=== PATIENT | male | born 1955 | race Caucasian/White ===

== ENCOUNTER 2023-06-09 08:26 | Outpatient (OUT) | payer BC, SELFPAY | END 2023-06-09 08:27 | disposition home or self-care (01) | LOC: PST 08:27 | PROVIDERS: PCP Internal Medicine; Visit Provider Surgery | DX: Z01.818 Encounter for other preprocedural examination (principal); Z86.010 Personal history of colon polyps ==

== ENCOUNTER 2023-06-17 08:44 | Day surgery (SDC) | payer BC, SELFPAY ==
--- NOTE | 2023-06-17 | OP_ITS ---
OPERATION DATE: ??06/17/2023 PREOPERATIVE DIAGNOSIS:? Personal history of colon polyps, large villoglandular polyp in the ascending colon. POSTOPERATIVE DIAGNOSIS:? Normal colonoscopy to cecum. PROCEDURE:? Colonoscopy to cecum. SURGEON:? Austin Henley M.D. ANESTHESIA:? Monitored anesthesia care. ESTIMATED BLOOD LOSS:? Zero. INDICATIONS AND CONSENT:? 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 This was removed at [facility] with a submucosal resection technique.? Six month follow up colonoscopy was recommended.? Indications, risks, benefits, alternatives of proceeding with colonoscopy were explained extensively to the patient, including the risks of bleeding, infection, scarring, pain, bowel perforation, need for further surgery or anesthetic complications.? All of his questions were answered.? Informed consent was obtained. PROCEDURE:? Patient brought to the operating room, placed in the left lateral decubitus position.? Monitored anesthesia care was provided.? Rectal exam was performed which showed no masses or blood.? The scope was inserted into the anal canal.? Under direct visualization was advanced.? With the aid of abdominal compression, it was advanced to the cecum where cecal markings were clearly identified.? There was noted to be a good prep.? Upon withdrawal of the scope, mucosal surfaces were carefully examined.? There was noted to be scarring where the submucosal resection was performed, but there was no nodularity or recurrent polyp. There were no mass lesions or inflammatory changes.? No significant diverticulosis.? The scope was retroflexed in the anal canal.? There was no significant hemorrhoidal disease.? Scope was then withdrawn.? Patient tolerated procedure well, was sent to recovery room in good condition. Follow up colonoscopy should be in one year. CC:? Yeni Byers
[2023-06-17 09:02] VITALS: BMI 33.9
[2023-06-17] MEDS: LACTATED RINGER'S SOLUTION 1,000 ML 50 ML IV (09:14)
[2023-06-17 10:55] VITALS: BP 113/73; PULSE 78; RESP 20; TEMP 35.8; O2SAT 96
[2023-06-17 11:10] VITALS: BP 130/72; PULSE 82; RESP 18; O2SAT 97
[2023-06-17 11:26] VITALS: BP 132/72; PULSE 77; RESP 18; O2SAT 98
== END 2023-06-17 11:25 | disposition home or self-care (01) ==
PROVIDERS: PCP Internal Medicine; Visit Provider Surgery
PROC: (CPT 811; principal; 2023-06-17 09:40)
DX: Z86.010 Personal history of colon polyps (principal); I10 Essential (primary) hypertension; E66.01 Morbid (severe) obesity due to excess calories; Z87.442 Personal history of urinary calculi; Z79.82 Long term (current) use of aspirin; Z79.899 Other long term (current) drug therapy; Z87.891 Personal history of nicotine dependence; J44.9 Chronic obstructive pulmonary disease, unspecified; G70.00 Myasthenia gravis without (acute) exacerbation; N40.0 Benign prostatic hyperplasia without lower urinary tract symptoms; Z68.31 Body mass index [BMI] 31.0-31.9, adult
CPT/HCPCS: 45378; J2704

== ENCOUNTER 2023-09-22 18:35 | Emergency (ER) | payer MEDICARE, SELFPAY ==
[2023-09-22 18:38] VITALS: BP 165/83; PULSE 109; RESP 18; TEMP 36.6; O2SAT 95; BMI 33.7
--- NOTE | 2023-09-22 18:42 | XR_ITS ---
[address] [address] Patient Name: BEBO CALDERON MRN: [id number] date: 1955 Sex: M Assigned Patient Location: ER Current Patient Location: ED.MAIN Accession/Order Number: [id number] Exam Date: 09/22/2023 18:50 Report Date: 09/22/2023 19:48 At the request of: CHARLES CASTANEDA Procedure: XR ankle RT 2V IMAGES REVIEWED: XR ankle RT 2V COMPARISON: None available. CLINICAL INDICATION: pain, fall FINDINGS/IMPRESSION: 1. No evidence of acute osseous abnormality of the right ankle. 2. Lower leg-ankle soft tissue swelling. 3. Mild calcaneal enthesopathy. Electronically authenticated by: SILVA JOSHI Date: 09/22/2023 19:48
--- NOTE | 2023-09-22 18:43 | ECG_ITS ---
The [facility] Test Date: 2023-09-22 Pat Name: BEBO CALDERON Department: Room: - Gender: Male Senior Product Manager: : 1955 Requested By: MIGUEL ANGEL GREGORIO Order Number: [id number] Reading MD: SOSA YBARRA Measurements Intervals [place] Rate: 105 P: 40 [place]: 144 QRS: 38 QRSD: 82 T: -15 QT: 338 QTc: 399 Interpretive Statements 1120 Sinus tachycardia [address] depression 4164 Twave abnormality, possible inferolateral ischemia 9150 abnormal ECG Electronically Signed On 09-22-2023 22:38:58 EDT by SOSA YBARRA
[2023-09-22] MEDS: OXYCODONE HCL/ACETAMINOPHEN 5MG/325MG 1 TAB PO (18:47)
--- NOTE | 2023-09-22 18:47 | PC.NURSE ---
patient reports that he has hit his right lee on a wooden stair facing 2 times in 2 days. patient has swelling and abrasion to right anterior lower leg-bleeding controlled. patient has swelling to right lower leg and area of ecchymosis around ankle mortise. patient is able to ambulate but is noted to be limping.
--- NOTE | 2023-09-22 18:53 | ED.GENADUL1 ---
HPI - General Adult General Chief complaint: Extremity Injury, Lower Stated complaint: LE INJURY Time Seen by Provider: 09/22/23 18:40 Source: patient Mode of arrival: walk-in Limitations: physical limitation History of Present Illness HPI narrative: 68-year-old male to the emergency room for a chief complaint of pain in his right ankle. Patient reports that three days ago he tripped while walking up stairs and injured his right lateral ankle. He reports that he had a small wound with some bleeding. He has been able to walk on it until again today he hit it again and has increased pain. He reports he is limping on it. He denies any fever, sweats, chills. He denies any numbness or tingling. Related Data Home Medications Medication Instructions Recorded Confirmed albuterol sulfate 2.5 mg/3 mL 1.25 mg inhalation TID-QID PRN 06/08/23 09/22/23 (0.083 %) solution for nebulization shortness of breath or wheezing amlodipine 5 mg tablet 5 mg PO DAILY 06/08/23 09/22/23 aspirin 81 mg tablet,delayed 81 mg PO DAILY 06/08/23 09/22/23 release carvedilol 3.125 mg tablet 3.125 mg PO BID 06/08/23 09/22/23 montelukast 10 mg tablet 10 mg PO QPM 06/08/23 09/22/23 (Singulair) pyridostigmine bromide 60 mg tablet 60 mg PO QID 06/08/23 09/22/23 Allergies Allergy/AdvReac Type Severity Reaction Status Date / Time No Known Drug Allergies Allergy Verified 09/22/23 18:41 Review of Systems ROS Status of ROS 10 or more systems reviewed and unremarkable except as noted in history and below [facility] Medical History (Updated 09/22/23 @ 18:55 by Prasad Swartz MD) Colonoscopy planned Tubular adenoma of colon ?D12.6 - Benign neoplasm of colon, unspecified (ICD-10) Positive colorectal cancer screening using Cologuard test ?R19.5 - Other fecal abnormalities (ICD-10) Colonic polyp ?K63.5 - Polyp of colon (ICD-10) Myasthenia gravis ?G70.00 - Myasthenia gravis without (acute) exacerbation (ICD-10) Morbid obesity ?E66.01 - Morbid (severe) obesity due to excess calories (ICD-10) History of nephrolithiasis ?Z87.442 - Personal history of urinary calculi (ICD-10) Essential hypertension ?I10 - Essential (primary) hypertension (ICD-10) Cervical disc disease ?M50.90 - Cervical disc disorder, unspecified, unspecified cervical region (ICD-10) BMI 35.0-35.9,adult ?Z68.35 - Body mass index [BMI] 35.0-35.9, adult (ICD-10) Berylliosis ?J63.2 - Berylliosis (ICD-10) Surgical History (Updated 06/08/23 @ 14:50 by Chelita Bowles) History of ureteroscopy ?Z98.890 - Other specified postprocedural states (ICD-10) History of repair of rotator cuff ?Z98.890 - Other specified postprocedural states (ICD-10) Status post trigger finger release ?Z98.890 - Other specified postprocedural states (ICD-10) Hx of LASIK ?Z98.890 - Other specified postprocedural states (ICD-10) History of cystoscopy ?Z98.890 - Other specified postprocedural states (ICD-10) Hx of cardiac cath ?Z98.890 - Other specified postprocedural states (ICD-10) History of appendectomy ?Z90.49 - Acquired absence of other specified parts of digestive tract (ICD-10) History of lithotripsy ?Z98.890 - Other specified postprocedural states (ICD-10) Family History (Updated 06/08/23 @ 14:55 by Chelita Bowles) Mother Family history of COPD (chronic obstructive pulmonary disease) Primary malignant neoplasm of skin Father Heart disease Brother Primary malignant neoplasm of skin Heart disease Social History (Updated 06/17/23 @ 08:59 by Tran Owen) Within the past year, how often did you have a drink containing alcohol: never Score interpretation: A score less than 4 is consistent with normal alcohol consumption. Smoking status: Former smoker Second hand tobacco smoke exposure: No Non-prescribed substance use: denies use Previous occupational history: RETIRED Known occupational exposures/hazards: Yes Known occupational exposures/hazards details: BERYLLIUM DISEASE Highest level of school completed/degree received: high school graduate Do you think of yourself as: straight/heterosexual Gender Identity: male Exam Narrative Exam Narrative: VITALS: I have reviewed the triage vital signs. GENERAL: Well developed, well appearing adult in no acute distress. NEURO: Alert and oriented. Moves all extremities. Face is symmetric and expressive. Right Lower Extremity: DP and PT pulses intact. Limb is similar color and temperature to the contralateral limb. No swelling. Trace bruising about the lateral ankle. No medial malleolus tenderness. Positive lateral malleolus tenderness. No tenderness at the base of the fifth metatarsal. No midfoot tenderness. No fibular head tenderness. Able to bear weight with arches maintained. Sensation is intact over the foot and lower leg. Dorsiflexion/plantar flexion, knee flexion/extension, hip flexion/extension are grossly intact by strength testing. SKIN: Warm and dry. Normal turgor. No rash or lesions appreciated. PSYCH: Mood, affect, and interaction is appropriate to the setting. Constitutional Vital Signs, click to edit/add: Last Vital Signs Temp 98 F 09/22/23 18:38 Pulse 109 H 09/22/23 18:38 Resp 18 09/22/23 18:38 BP 165/83 H 09/22/23 18:38 Pulse Ox 95 09/22/23 18:38 O2 Del Method Room Air 09/22/23 18:38 Course Vital Signs Vital signs: Vital Signs Temperature 98 F 09/22/23 18:38 Pulse Rate 109 H 09/22/23 18:38 Respiratory Rate 18 09/22/23 18:38 Blood Pressure 165/83 H 09/22/23 18:38 Pulse Oximetry 95 09/22/23 18:38 Oxygen Delivery Method Room Air 09/22/23 18:38 Temperature 98 F 09/22/23 18:38 Pulse Rate 109 H 09/22/23 18:38 Respiratory Rate 18 09/22/23 18:38 Blood Pressure 165/83 H 09/22/23 18:38 Pulse Oximetry 95 09/22/23 18:38 Oxygen Delivery Method Room Air 09/22/23 18:38 Medical Decision Making MDM Narrative Medical decision making narrative: 68-year-old male to the emergency department procedures right ankle. X-rays ordered. Percocet for pain. Care was signed out to Dr. Bray. Discharge Plan Discharge Chief Complaint: Extremity Injury, Lower Clinical Impression: Acute ankle pain Patient Disposition: Still a Patient Prescriptions / Home Meds: No Action amlodipine 5 mg tablet 5 mg PO DAILY aspirin 81 mg tablet,delayed release (DR/EC) 81 mg PO DAILY albuterol sulfate 2.5 mg /3 mL (0.083 %) solution for nebulization 1.25 mg inhalation TID-QID PRN (Reason: shortness of breath or wheezing) carvedilol 3.125 mg tablet 3.125 mg PO BID Rx Instructions: must administer with a meal/food pyridostigmine bromide 60 mg tablet 60 mg PO QID montelukast [Singulair] 10 mg tablet 10 mg PO QPM Referrals: MIGUEL ANGEL GREGORIO MD [Primary Care Provider] - 1 week
--- NOTE | 2023-09-22 18:57 | ED_ITS ---
HPI - General Adult General Chief complaint: Extremity Injury, Lower Stated complaint: LE INJURY Time Seen by Provider: 09/22/23 18:40 Source: patient Mode of arrival: walk-in Limitations: physical limitation History of Present Illness HPI narrative: 68-year-old male to the emergency department treatment of injury of right ankle. He reports that three days ago he tripped and had pain over his lateral ankle. There is small wound with bleeding at that time. He reports that he had it again today and has increasing pain. He reports is difficult to walk due to pain. Otherwise at his baseline health. Denies any other injuries. Related Data Home Medications Medication Instructions Recorded Confirmed albuterol sulfate 2.5 mg/3 mL 1.25 mg inhalation TID-QID PRN 06/08/23 09/22/23 (0.083 %) solution for nebulization shortness of breath or wheezing amlodipine 5 mg tablet 5 mg PO DAILY 06/08/23 09/22/23 aspirin 81 mg tablet,delayed 81 mg PO DAILY 06/08/23 09/22/23 release carvedilol 3.125 mg tablet 3.125 mg PO BID 06/08/23 09/22/23 montelukast 10 mg tablet 10 mg PO QPM 06/08/23 09/22/23 (Singulair) pyridostigmine bromide 60 mg tablet 60 mg PO QID 06/08/23 09/22/23 Allergies Allergy/AdvReac Type Severity Reaction Status Date / Time No Known Drug Allergies Allergy Verified 09/22/23 18:41 Review of Systems ROS Status of ROS 10 or more systems reviewed and unremark able except as noted in history and below [facility] Medical History (Updated 09/22/23 @ 18:55 by Prasad Swartz MD) Colonoscopy planned Tubular adenoma of colon ?D12.6 - Benign neoplasm of colon, unspecified (ICD-10) Positive colorectal cancer screening using Cologuard test ?R19.5 - Other fecal abnormalities (ICD-10) Colonic polyp ?K63.5 - Polyp of colon (ICD-10) Myasthenia gravis ?G70.00 - Myasthenia gravis without (acute) exacerbation (ICD-10) Morbid obesity ?E66.01 - Morbid (severe) obesity due to excess calories (ICD-10) History of nephrolithiasis ?Z87.442 - Personal history of urinary calculi (ICD-10) Essential hypertension ?I10 - Essential (primary) hypertension (ICD-10) Cervical disc disease ?M50.90 - Cervical disc disorder, unspecified, unspecified cervical region (ICD-10) BMI 35.0-35.9,adult ?Z68.35 - Body mass index [BMI] 35.0-35.9, adult (ICD-10) Berylliosis ?J63.2 - Berylliosis (ICD-10) Surgical History (Updated 06/08/23 @ 14:50 by Chelita Bowles) History of ureteroscopy ?Z98.890 - Other specified postprocedural states (ICD-10) History of repair of rotator cuff ?Z98.890 - Other specified postprocedural states (ICD-10) Status post trigger finger release ?Z98.890 - Other specified postprocedural states (ICD-10) Hx of LASIK ?Z98.890 - Other specified postprocedural states (ICD-10) History of cystoscopy ?Z98.890 - Other specified postprocedural states (ICD-10) Hx of cardiac cath ?Z98.890 - Other specified postprocedural states (ICD-10) History of appendectomy ?Z90.49 - Acquired absence of other specified parts of digestive tract (ICD- 10) History of lithotripsy ?Z98.890 - Other specified postprocedural states (ICD-10) Family History (Updated 06/08/23 @ 14:55 by Chelita Bowles) Mother Family history of COPD (chronic obstructive pulmonary disease) Primary malignant neoplasm of skin Father Heart disease Brother Primary malignant neoplasm of skin Heart disease Social History (Updated 06/17/23 @ 08:59 by Tran Owen) Within the past year, how often did you have a drink containing alcohol: never Score interpretation: A score less than 4 is consistent with normal alcohol consumption. Smoking status: Former smoker Second hand tobacco smoke exposure: No Non-prescribed substance use: denies use Previous occupational history: RETIRED Known occupational exposures/hazards: Yes Known occupational exposures/hazards details: BERYLLIUM DISEASE Highest level of school completed/degree received: high school graduate Do you think of yourself as: straight/heterosexual Gender Identity: male Exam Narrative Exam Narrative: VITALS: I have reviewed the triage vital signs. GENERAL: Well developed, well appearing adult in no acute distress. Right Lower Extremity: DP and PT pulses intact. Limb is similar color and temperature to the contralateral limb. No swelling. Trace ecchymosis about the right ankle. No medial malleolus tenderness. Positive lateral malleolus tenderness. No tenderness at the base of the fifth metatarsal. No midfoot tenderness. No fibular head tenderness. Able to bear weight with arches maintained. Sensation is intact over the foot and lower leg. Dorsiflexion/plantar flexion, knee flexion/extension, hip flexion/extension are grossly intact by strength testing. Compartments are soft. SKIN: Warm and dry. Normal turgor. No rash or lesions appreciated. PSYCH: Mood, affect, and interaction is appropriate to the setting. Constitutional Vital Signs, click to edit/add: Last Vital Signs Temp 98 F 09/22/23 18:38 Pulse 109 H 09/22/23 18:38 Resp 18 09/22/23 18:38 BP 165/83 H 09/22/23 18:38 Pulse Ox 95 09/22/23 18:38 O2 Del Method Room Air 09/22/23 18:38 Course Vital Signs Vital signs: Vital Signs Temperature 98 F 09/22/23 18:38 Pulse Rate 109 H 09/22/23 18:38 Respiratory Rate 18 09/22/23 18:38 Blood Pressure 165/83 H 09/22/23 18:38 Pulse Oximetry 95 09/22/23 18:38 Oxygen Delivery Method Room Air 09/22/23 18:38 Temperature 98 F 09/22/23 18:38 Pulse Rate 109 H 09/22/23 18:38 Respiratory Rate 18 09/22/23 18:38 Blood Pressure 165/83 H 09/22/23 18:38 Pulse Oximetry 95 09/22/23 18:38 Oxygen Delivery Method Room Air 09/22/23 18:38 Medical Decision Making MDM Narrative Medical decision making narrative: 68-year-old male with injury to his right ankle. Vital stable, the patient is afebrile. Limits neurovascularly intact. There is no evidence of infection. No evidence of compartment syndrome. X-rays ordered. Percocet for discomfort. Care was signed out to Dr. Bray with x-ray pending. Discharge Plan Discharge Patient Disposition: Still a Patient
== END 2023-09-22 20:20 | disposition home or self-care (01) ==
PROVIDERS: Emergency Provider Internal Medicine; PCP Internal Medicine
DX: S93.401A Sprain of unspecified ligament of right ankle, initial encounter (principal); W18.40XA Slipping, tripping and stumbling without falling, unspecified, initial encounter; Z79.82 Long term (current) use of aspirin; Z79.899 Other long term (current) drug therapy; E66.01 Morbid (severe) obesity due to excess calories; I10 Essential (primary) hypertension; J63.2 Berylliosis; Z87.442 Personal history of urinary calculi; G70.00 Myasthenia gravis without (acute) exacerbation; Z86.010 Personal history of colon polyps; Z87.891 Personal history of nicotine dependence; Z90.49 Acquired absence of other specified parts of digestive tract; Z98.890 Other specified postprocedural states; Z68.33 Body mass index [BMI] 33.0-33.9, adult
CPT/HCPCS: 73600; 93005; 99284

== ENCOUNTER 2023-09-29 03:37 | Emergency (ER) | payer BC, SELFPAY ==
--- NOTE | 2023-09-29 | CT_ITS ---
[address] [address] Patient Name: BEBO CALDERON MRN: [id number] date: 1955 Sex: M Assigned Patient Location: ED.MAIN Current Patient Location: Accession/Order Number: [id number] Exam Date: 09/29/2023 05:12 Report Date: 09/29/2023 06:19 At the request of: CRYSTAL HOLGUIN Procedure: CT abdomen pelvis w con EXAMINATION: CT abdomen pelvis w con HISTORY: Acute epigastric pain, abdominal bloating, nausea and vomiting COMPARISON: CT abdomen pelvis 10/07/2011 TECHNIQUE: Axial, Coronal, and Sagittal images were obtained without and/or with IV contrast as indicated by examination type. Dose reduction techniques were achieved by using automated exposure control and/or adjustment of mA and/or kV according to patient size and/or use of iterative reconstruction technique. FINDINGS: LUNG BASES: No visible pulmonary or pleural disease. LIVER: No enlargement, atrophy, suspicious density, or significant focal lesion. BILIARY: No dilatation or calcification. PANCREAS: No lesion, fluid collection, or abnormal duct dilatation. SPLEEN: No enlargement or focal lesion. ADRENALS: No mass or enlargement. KIDNEYS: Several small hypodensities bilaterally; nonspecific but favoring cysts. Nonobstructing 4 mm stone within right kidney. BOWEL/MESENTERY: Fluid-filled stomach, small bowel, and colon without abnormal dilation. No visible mass, obstruction, or bowel wall thickening. AORTA/VASCULAR: No aneurysm or dissection. RETROPERITONEUM: No mass or adenopathy. LYMPH NODES: No adenopathy. URINARY BLADDER: No visible focal wall thickening, lesion, or calculus. PELVIC ORGANS: No visible mass. Pelvic organs appropriate for patient age. ABDOMINAL WALL: No mass or hernia. BONES: No bony lesion or fracture. OTHER: Negative. CT/CT abdomen pelvis w con IMPRESSION: 1. Fluid-filled stomach, small bowel, and colon without abnormal bowel dilation, wall thickening, obstruction. Enteritis? 2. Otherwise unremarkable abdomen and pelvis. Electronically authenticated by: RENO DONNELLY Date: 09/29/2023 06:19
--- NOTE | 2023-09-29 | XR_ITS ---
The [address] [address] Patient Name: BEBO CALDERON MRN: [id number] date: 1955 Sex: M Assigned Patient Location: ED.MAIN Current Patient Location: Accession/Order Number: [id number] Exam Date: 09/29/2023 05:05 Report Date: 09/29/2023 06:10 At the request of: CRYSTAL HOLGUIN Procedure: XR chest 2V EXAMINATION: XR chest 2V HISTORY: Acute epigastric pain, abdominal bloating, nausea and vomiting COMPARISON: XR chest 02/11/2020 FINDINGS: LUNGS: No significant pulmonary parenchymal abnormalities. VASCULATURE: No increased pulmonary vasculature. PLEURA: No pneumothorax, effusion, or pleural thickening. CARDIAC: No cardiomegaly or cardiac silhouette abnormality. MEDIASTINUM: No visible mass or adenopathy. BONES: No fracture or visible bone lesion. OTHER: Negative. XR/XR chest 2V IMPRESSION: 1. No acute cardiopulmonary process. Electronically authenticated by: RENO DONNELLY Date: 09/29/2023 06:10
[2023-09-29] MEDS: ONDANSETRON 4 MG RAPDIS TABLET SL (06:53)
[2023-09-29 06:54] VITALS: BP 138/80; PULSE 76; RESP 18; O2SAT 99
[2023-09-29 07:27] LABS: Chloride 102 mmol/L (98-107); Potassium 3.4 mmol/L (3.5-5.1); Sodium 137 mmol/L (136-145)
[2023-09-29 07:28] LABS: Alanine Aminotransferase 32 U/L (16-63); Albumin Globulin Ratio 0.8; Albumin Level 3.1 g/dL (3.4-5.0); Alkaline Phosphatase 58 U/L (46-116); Aspartate Amino Transferase 15 U/L (15-37); BUN Creatinine Ratio 13.7; Bilirubin Total 0.8 mg/dL (0.2-1.0); Calcium 9.1 mg/dL (8.5-10.1); Carbon Dioxide 24.4 mmol/L (21.0-32.0); Estimated GFR (African America >60 (>=60); Estimated GFR (Non-African Ame 58 (>=60); Globulin 3.7 g/dL; Glucose 124 mg/dL (74-106); Total Protein 6.8 g/dL (6.4-8.2)
[2023-09-29 07:29] LABS: Hematocrit 45.5 % (42.0-54.0); Mean Corpuscular Hemoglobin 30.7 pg (25.9-34.0); Red Blood Count 4.88 10^6/uL (4.70-6.10); White Blood Count 10.2 10^3/uL (4.0-11.0)
[2023-09-29 07:30] LABS: Basophils Percent Auto 0.2 % (0.2-2.0); Eosinophils Percent Auto 1.2 % (0.9-7.0); Immature Granulocytes Pct Auto 0.3 % (0.0-0.5); Lymphocytes Percent Auto 12.8 % (20.5-60.0); Mean Platelet Volume 10.8 fL (9.5-13.5); Monocytes Percent Auto 9.1 % (1.7-12.0); Neutrophils Absolute Auto 7.8 10^3/uL (1.4-6.5); Neutrophils Percent Auto 76.4 % (43.0-75.0); Platelet Count 262 10^3/uL (150-450)
[2023-09-29 07:31] LABS: Eosinophils Absolute Auto 0.1 10^3/uL (0.0-0.7); Immature Granulocytes Abs Auto 0.03 10^3/uL (0.00-0.03); Lymphocytes Absolute Auto 1.3 10^3/uL (1.2-3.8); Monocytes Absolute Auto 0.9 10^3/uL (0.3-0.8)
== END 2023-09-29 06:54 | disposition home or self-care (01) ==
PROVIDERS: Emergency Provider Internal Medicine; PCP Internal Medicine
DX: K52.9 Noninfective gastroenteritis and colitis, unspecified (principal)
CPT/HCPCS: 36415; 71046; 74177; 80053; 85025; 96374; 99285; Q9967

== ENCOUNTER 2024-03-11 13:46 | Emergency (ER) | payer MEDICARE, SELFPAY ==
[2024-03-11 13:50] VITALS: BP 153/80; PULSE 89; TEMP 37.1; O2SAT 95; BMI 36.6
--- NOTE | 2024-03-11 14:07 | US_ITS ---
The [address] [address] Patient Name: BEBO CALDERON MRN: [id number] date: 1955 Sex: M Assigned Patient Location: ER Current Patient Location: ER Accession/Order Number: [id number] Exam Date: 03/11/2024 14:40 Report Date: 03/11/2024 16:15 At the request of: WOODY MILLER Procedure: US venous doppler LE BI ULTRASOUND OF BILATERAL LOWER EXTREMITY VENOUS SYSTEMS WITH DUPLEX, 03/11/2024 2:40 PM EDT INDICATION: Leg edema. Recent airline travel. COMPARISON: No prior lower extremity Doppler ultrasound available for comparison at the time of this dictation. TECHNIQUE: Multi-planar real-time ultrasonography of the bilateral lower extremity venous systems using grayscale imaging supplemented by color Doppler. Augmentation and compression maneuvers were utilized as needed. FINDINGS: The saphenofemoral junction, common femoral, profunda femoral, superficial femoral and popliteal veins are fully compressible with anterograde flow. Respiratory variation and waveform response to augmentation within normal limits. Complete compressibility posterior tibial, peroneal, anterior tibial, small saphenous and greater saphenous veins. US/US venous doppler LE BI IMPRESSION: Negative for deep vein thrombosis in either lower extremity. Electronically authenticated by: RONAK SHORE Date: 03/11/2024 16:15
--- NOTE | 2024-03-11 14:07 | XR_ITS ---
The [address] [address] Patient Name: BEBO CALDERON MRN: [id number] date: 1955 Sex: M Assigned Patient Location: ER Current Patient Location: ER Accession/Order Number: [id number] Exam Date: 03/11/2024 14:18 Report Date: 03/11/2024 14:38 At the request of: WOODY MILLER Procedure: XR chest 2V EXAM: XR chest 2V HISTORY: SOB, Fluid Retention, history of Berylium disease COMPARISON: 09/29/2023 and earlier chest x-ray. CT chest 2014. TECHNIQUE: PA, lateral chest x-ray. FINDINGS: Lungs are clear without focal density, consolidation or edema. No increasing interstitial density. Normal heart size and mediastinal contour. No pleural effusion or pneumothorax. XR/XR chest 2V IMPRESSION: Stable chest x-ray, clear lungs. No evidence of developing interstitial lung disease. Electronically authenticated by: NICKY SUAZO Date: 03/11/2024 14:38
--- NOTE | 2024-03-11 14:08 | ECG_ITS ---
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
--- NOTE | 2024-03-11 14:12 | ED.GENADUL1 ---
HPI HPI - General Adult General Chief complaint: Shortness of Breath/Dyspnea Stated complaint: BILATERAL LEG SWELLING Time Seen by Provider: 03/11/24 13:54 Source: patient Mode of arrival: walk-in Limitations: no limitations History of Present Illness HPI narrative: Patient is a 68-year-old male presents to the ER with concerns of lower leg swelling. Patient has a history of myasthenia gravis and beryllium disease. Patient states he recently got off a long-term high-dose prednisone treatment and they stopped mycophenolate on Thursday. He has been having gradual fluid retention over the past 3 weeks with symptoms worsening in the past week. He also had a recent flight to [place] earlier in the month. He denies any prior history of PE or DVT. Patient notes legs are less swollen in the morning but become very swollen in the afternoon. He did try wearing compression socks earlier but it caused his upper thigh to swell, the right leg is more swollen than the left. Patient notes some shortness of breath in the home health nurse recommended he come to the ER for evaluation. Patient states he has never taken diuretics in the past. They are always change my meds. PCP is Dr. Gregorio. Onset (ago): week(s) (3) Radiation: Reports non-radiation Severity: mild Related Data Home Medications ?Medication ?Instructions ?Recorded ?Confirmed amlodipine 5 mg tablet 5 mg PO DAILY 06/08/23 03/11/24 carvedilol 3.125 mg tablet 3.125 mg PO BID 06/08/23 09/22/23 montelukast 10 mg tablet 10 mg PO QPM 06/08/23 03/11/24 (Singulair) budesonide 0.25 mg/2 mL suspension 0.25 mg inhalation DAILY 03/11/24 03/11/24 for nebulization carvedilol 6.25 mg tablet 6.25 mg PO BID 03/11/24 03/11/24 dapagliflozin propanediol 10 mg 10 mg PO DAILY 03/11/24 03/11/24 tablet (Farxiga) prednisone 10 mg tablet 5 mg PO DAILY 03/11/24 03/11/24 rosuvastatin 20 mg tablet 20 mg PO DAILY 03/11/24 03/11/24 Allergies Allergy/AdvReac Type Severity Reaction Status Date / Time No Known Drug Allergies Allergy Verified 03/11/24 13:50 Opioid HPI Opioid Management Most Recent Opioid Data: Last Pain Scale 8 09/22/23 18:47 Review of Systems ROS Constitutional Denies: fever or chills Eyes Denies: change in vision or blurry vision Ears, nose, mouth, and throat Denies: throat pain, neck pain or throat swelling Cardiovascular Reports: edema and swelling of feet/ankles; Denies: chest pain, palpitations or lightheadedness Respiratory Reports: shortness of breath; Denies: cough or wheezing Gastrointestinal Denies: abdominal pain or nausea Genitourinary Denies: painful urination Musculoskeletal Denies: back pain or neck pain Integumentary/Breast Denies: rash or itching Neurological Denies: headache or numbness in extremities Psychiatric Denies: anxiety Endocrine Denies: excessive urination Hematologic/Lymphatic Denies: easy bruising PFSH PFSH Medical History (Updated 03/11/24 @ 16:28 by HOWARD Weston) Colonoscopy planned Tubular adenoma of colon ?D12.6 - Benign neoplasm of colon, unspecified (ICD-10) Positive colorectal cancer screening using Cologuard test ?R19.5 - Other fecal abnormalities (ICD-10) Colonic polyp ?K63.5 - Polyp of colon (ICD-10) Myasthenia gravis ?G70.00 - Myasthenia gravis without (acute) exacerbation (ICD-10) Morbid obesity ?E66.01 - Morbid (severe) obesity due to excess calories (ICD-10) History of nephrolithiasis ?Z87.442 - Personal history of urinary calculi (ICD-10) Essential hypertension ?I10 - Essential (primary) hypertension (ICD-10) Cervical disc disease ?M50.90 - Cervical disc disorder, unspecified, unspecified cervical region (ICD-10) BMI 35.0-35.9,adult ?Z68.35 - Body mass index [BMI] 35.0-35.9, adult (ICD-10) Berylliosis ?J63.2 - Berylliosis (ICD-10) Surgical History (Updated 06/08/23 @ 14:50 by Chelita Bowles) History of ureteroscopy ?Z98.890 - Other specified postprocedural states (ICD-10) History of repair of rotator cuff ?Z98.890 - Other specified postprocedural states (ICD-10) Status post trigger finger release ?Z98.890 - Other specified postprocedural states (ICD-10) Hx of LASIK ?Z98.890 - Other specified postprocedural states (ICD-10) History of cystoscopy ?Z98.890 - Other specified postprocedural states (ICD-10) Hx of cardiac cath ?Z98.890 - Other specified postprocedural states (ICD-10) History of appendectomy ?Z90.49 - Acquired absence of other specified parts of digestive tract (ICD-10) History of lithotripsy ?Z98.890 - Other specified postprocedural states (ICD-10) Family History (Updated 06/08/23 @ 14:55 by Chelita Bowles) Mother Family history of COPD (chronic obstructive pulmonary disease) Primary malignant neoplasm of skin Father Heart disease Brother Primary malignant neoplasm of skin Heart disease Social History (Updated 06/17/23 @ 08:59 by Tran Owen) Within the past year, how often did you have a drink containing alcohol: never Score interpretation: A score less than 4 is consistent with normal alcohol consumption. Smoking status: Former smoker Second hand tobacco smoke exposure: No Non-prescribed substance use: denies use Previous occupational history: RETIRED Known occupational exposures/hazards: Yes Known occupational exposures/hazards details: BERYLLIUM DISEASE Highest level of school completed/degree received: high school graduate Do you think of yourself as: straight/heterosexual Gender Identity: male Exam Narrative Exam Narrative: Nurses notes and vital signs reviewed and patient is not hypoxic. General: The patient appears well and in no apparent distress. Patient is resting comfortably on cart. Patient speaking in full sentences Skin: Warm, dry, no pallor noted. No evidence of rash. Head: Normocephalic, atraumatic Neck: Supple, trachea mid-line, no tenderness, no lymphadenopathy Eye: Pupils are equal, round and reactive to light, EOMI Ears, Nose, Mouth, and Throat: TM are clear, normal light reflex, oral mucosa is moist, no posterior oropharynx erythema or hypertrophy, uvula is mid-line Cardiovascular: Regular Rate and Rhythm Respiratory: Patient is in no distress, no accessory muscle use, lungs are clear to auscultation, no wheezing, rales or rhonchi. Chest Wall: no tenderness Back: non-tender, no CVA tenderness Musculoskeletal: normal ROM, no focal joint pain, mild tenderness to swelling in lower legs. Negative Homans' sign but prominent right lower leg swelling in comparison to the left. Left has mild pitting edema right appears more 1+. No sacral edema appreciated. GI: Normal bowel sounds, no tenderness to palpation, no masses appreciated. No rebound, guarding, or rigidity noted. Neurological: A&O x4 Psychiatric: Cooperative Constitutional Vital Signs, click to edit/add: Last Vital Signs Temp 98.7 F 03/11/24 13:50 Pulse 89 03/11/24 13:50 Resp 16 03/11/24 13:50 BP 153/80 H 03/11/24 13:50 Pulse Ox 95 03/11/24 13:50 O2 Del Method Room Air 03/11/24 13:50 Course Vital Signs Vital signs: Vital Signs Temperature 98.7 F 03/11/24 13:50 Pulse Rate 89 03/11/24 13:50 Respiratory Rate 16 03/11/24 13:50 Blood Pressure 153/80 H 03/11/24 13:50 Pulse Oximetry 95 03/11/24 13:50 Oxygen Delivery Method Room Air 03/11/24 13:50 Temperature 98.7 F 03/11/24 13:50 Pulse Rate 89 03/11/24 13:50 Respiratory Rate 16 03/11/24 13:50 Blood Pressure 153/80 H 03/11/24 13:50 Pulse Oximetry 95 03/11/24 13:50 Oxygen Delivery Method Room Air 03/11/24 13:50 Medical Decision Making MDM Narrative Medical decision making narrative: Patient had recent long travels to [place]. We discussed swelling bilateral legs which appears acute on chronic with 5 pound weight gain this week after stopping prednisone taper and mycophenolate. Patient notes some mild shortness of breath for the past few days. He denies any chest pain. Patient notes in the mornings his leg swelling is improved but worsens throughout the day and wearing compression socks to the knee causes upper thighs to swell. Patient denies any fever or recent illness. Symptoms acute on chronic over the past 3 weeks. Patient had significant urinary output after receiving just 20 mg IV Lasix. We discussed potential p.o. treatment to go, effects on blood pressure and potassium. We did page his family doctor to discuss a possible prescription, he is not on-call for us this evening and will reach out to patient if he does return a phone call later. Patient agreeable to continue current medications given his medical history and not add anything new at this time. He will wear his DAVID hose socks, avoid salty foods. Contact his family doctor on Thursday to discuss follow-up and possible medication adjustments. Patient relieved that ultrasound was negative for DVT given his recent travels, chest x-ray without evidence of pulmonary edema or infiltrate and BNP and troponin within normal limits. Patient may return to the ER if symptoms worsen or new symptoms develop. Lab Data Lab results reviewed: Yes I reviewed the patient's lab results Labs: Lab Results 03/11/24 03/11/24 Range/Units 14:21 14:24 WBC 10.9 (4.0-11.0) 10^3/uL RBC 4.99 (4.70-6.10) 10^6/uL Hgb 15.4 (14.0-18.0) g/dL Hct 45.5 (42.0-54.0) % MCV 91.2 (80.0-94.0) fL MCH 30.9 (25.9-34.0) pg MCHC 33.8 (29.9-35.2) g/dL RDW 12.4 (11.0-15.0) % Plt Count 287 (150-450) 10^3/uL MPV 10.8 (9.5-13.5) fL Neut % (Auto) 73.1 (43.0-75.0) % Lymph % (Auto) 16.3 L (20.5-60.0) % Bradley % (Auto) 9.0 (1.7-12.0) % Eos % (Auto) 0.7 L (0.9-7.0) % Baso % (Auto) 0.6 (0.2-2.0) % Neut # (Auto) 8.0 H (1.4-6.5) 10^3/uL Lymph # (Auto) 1.8 (1.2-3.8) 10^3/uL Bradley # (Auto) 1.0 H (0.3-0.8) 10^3/uL Eos # (Auto) 0.1 (0.0-0.7) 10^3/uL Baso # (Auto) 0.1 (0.0-0.1) 10^3/uL Abs Immat Gran (auto) 0.03 (0.00-0.03) 10^3/uL Imm/Tot Granulo (auto) 0.3 (0.0-0.5) % PT 10.2 (9.0-11.6) sec INR 0.96 APTT 28.8 (22.3-36.2) sec Sodium 139 (136-145) mmol/L Potassium 3.7 (3.5-5.1) mmol/L Chloride 104 (98-107) mmol/L Carbon Dioxide 26.8 (21.0-32.0) mmol/L Anion Gap 11.9 BUN 16.0 (7.0-18.0) mg/dL Creatinine 1.17 (0.70-1.30) mg/dL Est GFR ( Amer) >60 (>=60) Est GFR (Non-Af Amer) >60 (>=60) BUN/Creatinine Ratio 13.7 Glucose 107 H (74-106) mg/dL Calcium 9.4 (8.5-10.1) mg/dL Total Bilirubin 0.3 (0.2-1.0) mg/dL AST 13 L (15-37) U/L ALT 38 (16-63) U/L Alkaline Phosphatase 105 (46-116) U/L Troponin I High Sens <4.0 L (4.0-76.1) pg/mL NT-Pro-B Natriuret Pep 118.0 (<=900.0) pg/mL Total Protein 7.4 (6.4-8.2) g/dL Albumin 4.0 (3.4-5.0) g/dL Globulin 3.4 g/dL Albumin/Globulin Ratio 1.2 Urine Color Lt. yellow (YELLOW) Urine Clarity Clear (CLEAR) Urine pH 6.0 (5.0-9.0) Ur Specific [place] 1.020 (1.005-1.025) Urine Protein Negative (NEG/TRACE) mg/dL Urine Glucose (UA) >=1000 A (NEGATIVE) mg/dL Urine Ketones Negative (NEGATIVE) mg/dL Urine Occult Blood Negative (NEGATIVE) Urine Nitrite Negative (NEGATIVE) Urine Bilirubin Negative (NEGATIVE) Urine Urobilinogen 0.2 (0.2-1.0) EU/dL Ur Leukocyte Esterase Negative (NEGATIVE) Imaging Data Chest x-ray: Radiologist's impression: ITS Impressions Chest X-Ray 03/11/24 14:07 IMPRESSION: Stable chest x-ray, clear lungs. No evidence of developing interstitial lung disease. Electronically authenticated by: NICKY SUAZO Date: 03/11/2024 14:38 Venous Doppler Study 03/11/24 14:07 IMPRESSION: Negative for deep vein thrombosis in either lower extremity. Electronically authenticated by: RONAK SHORE Date: 03/11/2024 16:15 ECG Data Attestation: I personally reviewed and interpreted this ECG as follows: Interpretation: EKG interpretation: Emergency Department physician interpretation, normal sinus rhythm 82 bpm no ectopy, no ST segment elevation, normal axis. Discharge Plan Discharge Stand Alone Forms: Work/School Release, Portal Instructions Chief Complaint: Shortness of Breath/Dyspnea Clinical Impression: Leg edema, Dyspnea Patient Disposition: Home, Self-Care Time of Disposition Decision: 16:27 Condition: Good Prescriptions / Home Meds: No Action carvedilol 6.25 mg tablet 6.25 mg PO BID dapagliflozin propanediol [Farxiga] 10 mg tablet 10 mg PO DAILY prednisone 10 mg tablet 5 mg PO DAILY rosuvastatin 20 mg tablet 20 mg PO DAILY budesonide 0.25 mg/2 mL suspension for nebulization 0.25 mg inhalation DAILY amlodipine 5 mg tablet 5 mg PO DAILY carvedilol 3.125 mg tablet 3.125 mg PO BID Rx Instructions: must administer with a meal/food montelukast [Singulair] 10 mg tablet 10 mg PO QPM Print Language: Thai Instructions: Leg Edema (ED) Additional Instructions: Call PCP on Thursday for follow up. Referrals: MIGUEL ANGEL GREGORIO DO [Primary Care Provider] - 03/15/24
[2024-03-11 14:33] LABS: Basophils Absolute Auto 0.1 10^3/uL (0.0-0.1); Basophils Percent Auto 0.6 % (0.2-2.0); Eosinophils Absolute Auto 0.1 10^3/uL (0.0-0.7); Eosinophils Percent Auto 0.7 % (0.9-7.0); Hematocrit 45.5 % (42.0-54.0); Hemoglobin 15.4 g/dL (14.0-18.0); Immature Granulocytes Abs Auto 0.03 10^3/uL (0.00-0.03); Immature Granulocytes Pct Auto 0.3 % (0.0-0.5); Lymphocytes Absolute Auto 1.8 10^3/uL (1.2-3.8); Lymphocytes Percent Auto 16.3 % (20.5-60.0); Mean Corpuscular HGB Conc 33.8 g/dL (29.9-35.2); Mean Corpuscular Hemoglobin 30.9 pg (25.9-34.0); Mean Corpuscular Volume 91.2 fL (80.0-94.0); Mean Platelet Volume 10.8 fL (9.5-13.5); Neutrophils Percent Auto 73.1 % (43.0-75.0); Platelet Count 287 10^3/uL (150-450); Red Blood Count 4.99 10^6/uL (4.70-6.10); Red Cell Distribution Width 12.4 % (11.0-15.0); White Blood Count 10.9 10^3/uL (4.0-11.0)
[2024-03-11] MEDS: FUROSEMIDE 20 MG/2 ML VIAL IVP (14:35)
[2024-03-11 14:38] LABS: Bilirubin Urine NEGATIVE (NEGATIVE); Blood Urine NEGATIVE (NEGATIVE); Clarity Urine CLEAR (CLEAR); Color Urine LT. YELLOW (YELLOW); Glucose Urine UA >=1000 mg/dL (NEGATIVE); Ketones Urine NEGATIVE (NEGATIVE); Leukocyte Esterase Urine NEGATIVE (NEGATIVE); Nitrite Urine NEGATIVE (NEGATIVE); Protein Urine NEGATIVE (NEG/TRACE); Urobilinogen Urine 0.2 EU/dL (0.2-1.0)
[2024-03-11 14:39] LABS: Urine Microscopic Indicated NO
[2024-03-11 14:46] LABS: INR 0.96; Partial Thromboplastin Time 28.8 sec (22.3-36.2); Prothrombin Time 10.2 sec (9.0-11.6)
[2024-03-11 14:56] LABS: Alanine Aminotransferase 38 U/L (16-63); Albumin Globulin Ratio 1.2; Alkaline Phosphatase 105 U/L (46-116); Anion Gap 11.9; Aspartate Amino Transferase 13 U/L (15-37); BUN Creatinine Ratio 13.7; Bilirubin Total 0.3 mg/dL (0.2-1.0); Calcium 9.4 mg/dL (8.5-10.1); Carbon Dioxide 26.8 mmol/L (21.0-32.0); Chloride 104 mmol/L (98-107); Estimated GFR (African America >60 (>=60); Estimated GFR (Non-African Ame >60 (>=60); Globulin 3.4 g/dL; Glucose 107 mg/dL (74-106); Potassium 3.7 mmol/L (3.5-5.1); Sodium 139 mmol/L (136-145); Total Protein 7.4 g/dL (6.4-8.2); Troponin I High Sensitivity <4.0 pg/mL (4.0-76.1)
[2024-03-11 16:33] VITALS: PULSE 84; O2SAT 99
== END 2024-03-11 16:34 | disposition home or self-care (01) ==
PROVIDERS: Personal Emergency Response Attendant; Emergency Provider Emergency Medicine; PCP Internal Medicine
DX: R60.0 Localized edema (principal); R06.00 Dyspnea, unspecified; G70.00 Myasthenia gravis without (acute) exacerbation; J63.2 Berylliosis; R06.02 Shortness of breath; Z87.891 Personal history of nicotine dependence
CPT/HCPCS: 36415; 71046; 80053; 81003; 83880; 84484; 85025; 85610; 85730; 93005; 93970; 96374; 99285; J1940

== ENCOUNTER 2024-06-21 08:19 | Outpatient (OUT) | payer MEDICARE, SELFPAY | END 2024-06-21 08:20 | disposition home or self-care (01) | LOC: PST 08:19 | PROVIDERS: PCP Internal Medicine; Visit Provider Surgery | DX: Z01.818 Encounter for other preprocedural examination (principal); Z12.11 Encounter for screening for malignant neoplasm of colon ==

== ENCOUNTER 2024-06-29 09:33 | Day surgery (SDC) | payer MEDICARE, SELFPAY ==
--- NOTE | 2024-06-29 | OP_ITS ---
OPERATION DATE: 06/29/2024 PREOPERATIVE DIAGNOSIS: Personal history of colon polyps. POSTOPERATIVE DIAGNOSIS: Normal colonoscopy to cecum. PROCEDURE: Colonoscopy to cecum. SURGEON: Austin Henley M.D. ANESTHESIA: Monitored anesthesia care. ESTIMATED BLOOD LOSS: Zero. INDICATIONS AND CONSENT: Patient is a 69-year-old male, presents for surveillance colonoscopy. Indications, risks, benefits, alternatives of proceeding with colonoscopy were explained extensively to the patient, including the risks of bleeding, colon perforation or anesthetic complications. All of his questions were answered. Informed consent was obtained. PROCEDURE: Patient brought to the operating room, placed in the left lateral decubitus position. Monitored anesthesia care was provided. Rectal exam was performed which showed no masses or blood. The scope was inserted into the anal canal. Under direct visualization, it was advanced. It was advanced to the cecum where cecal markings were clearly identified. There was noted to be a good prep. Upon withdrawal of the scope, mucosal surfaces were carefully examined. There were no mass lesions or polyps. No inflammatory changes or ulcerations. No significant diverticulosis. The scope was retroflexed in the anal canal. There was no significant hemorrhoidal disease. The scope was then withdrawn. Patient tolerated procedure well, was sent to recovery room in good condition. surveillance colonoscopy should be in 3 years. CC: Yeni Byers
[2024-06-29 09:43] VITALS: BP 144/89; PULSE 97; TEMP 36.1; O2SAT 97; BMI 35.4
[2024-06-29] MEDS: 0.9 % SODIUM CHLORIDE 500 ML 50 ML IV (10:11)
[2024-06-29 11:14] VITALS: BP 100/86; PULSE 91; TEMP 36.6; O2SAT 96
[2024-06-29 11:29] VITALS: BP 100/86; PULSE 88; TEMP 36.6; O2SAT 99
[2024-06-29 11:44] VITALS: BP 137/76; PULSE 79; TEMP 36.1; O2SAT 98
== END 2024-06-29 11:44 | disposition home or self-care (01) ==
PROVIDERS: PCP Internal Medicine; Visit Provider Surgery
PROC: (CPT 45378; principal; 2024-06-29 10:40)
DX: Z09 Encounter for follow-up examination after completed treatment for conditions other than malignant neoplasm (principal); Z86.0101 Personal history of adenomatous and serrated colon polyps; I10 Essential (primary) hypertension; J63.2 Berylliosis; G70.00 Myasthenia gravis without (acute) exacerbation; E66.01 Morbid (severe) obesity due to excess calories; E78.5 Hyperlipidemia, unspecified; Z79.82 Long term (current) use of aspirin; Z79.899 Other long term (current) drug therapy; Z79.84 Long term (current) use of oral hypoglycemic drugs; Z79.52 Long term (current) use of systemic steroids; Z68.35 Body mass index [BMI] 35.0-35.9, adult; Z87.891 Personal history of nicotine dependence
CPT/HCPCS: 45378; J2704

== ENCOUNTER 2024-08-05 13:54 | Emergency (ER) | payer MEDICARE, SELFPAY ==
[2024-08-05 14:01] VITALS: BP 162/91; PULSE 94; TEMP 37; O2SAT 98; BMI 35.6
--- NOTE | 2024-08-05 14:03 | XR_ITS ---
The [address] [address] Patient Name: BEBO CALDERON MRN: [id number] date: 1955 Sex: M Assigned Patient Location: ED.MAIN Current Patient Location: Accession/Order Number: [id number] Exam Date: 08/05/2024 14:15 Report Date: 08/05/2024 16:09 At the request of: TANYA SHEPHERD Procedure: XR ankle RT min 3V EXAM: XR ankle RT min 3V 08/05/2024 COMPARISON STUDY: Right ankle 09/22/2023. FINDINGS: Frontal, oblique, and lateral views for 3 views obtained. HISTORY: Injury. XR/XR ankle RT min 3V IMPRESSION: 1. Marked periarticular soft tissue swelling, most apparent anteriorly and laterally noted. The osseous alignment is otherwise satisfactory. 2. Small calcaneal enthesophytes at the insertion sites of Achilles tendon and plantar aponeurosis again noted. 3. No acute fracture or dislocation. Electronically authenticated by: IRENA VAZ Date: 08/05/2024 16:09
--- NOTE | 2024-08-05 14:04 | ED_ITS ---
HPI HPI - Extremity Injury (Lower) General Chief Complaint: Extremity Injury, Lower Stated Complaint: Lower extremity pain Time Seen by Provider: 08/05/24 13:56 Source: patient and family Mode of arrival: walk-in History of Present Illness HPI Narrative: Patient is a 69-year-old male who presents to the emergency department for bruising, pain and swelling to the right lateral malleolus. He states he hit his right ankle with a chair several days ago. He is having more difficulty walking on it. He has not been icing or taking anti-inflammatories regularly. He denies twisting the ankle or any other associated injuries. He takes a baby aspirin daily, no other anticoagulation Related Data Home Medications ?Medication ?Instructions ?Recorded ?Confirmed carvedilol 3.125 mg tablet 3.125 mg PO BID 06/08/23 08/05/24 montelukast 10 mg tablet 10 mg PO QPM 06/08/23 08/05/24 (Singulair) budesonide 0.25 mg/2 mL suspension 0.25 mg inhalation DAILY 03/11/24 08/05/24 for nebulization prednisone 10 mg tablet 5 mg PO DAILY 03/11/24 08/05/24 rosuvastatin 20 mg tablet 20 mg PO DAILY 03/11/24 08/05/24 baby asprin 06/21/24 spironolactone 50 mg tablet 50 mg PO DAILY 06/21/24 08/05/24 dapagliflozin propanediol 10 mg 10 mg PO DAILY 08/05/24 08/05/24 tablet (Farxiga) Previous Rx's ?Medication ?Instructions ?Recorded hydrocodone 5 mg-acetaminophen 325 1 tab PO Q6H PRN pain 3 days #12 08/05/24 mg tablet tabs naproxen sodium 550 mg tablet 550 mg PO BID PRN pain #6 tabs 08/05/24 Allergies Allergy/AdvReac Type Severity Reaction Status Date / Time No Known Drug Allergies Allergy Verified 08/05/24 13:59 Opioid HPI Opioid Management Most Recent Pain and Opioid Data: Last Pain Scale 8 08/05/24 14:08 08/05/24 Last MAR Pain Assessment 08/05/24 14:08 Review of Systems ROS Constitutional Denies: fever or chills Ears, nose, mouth, and throat Denies: throat pain or nasal congestion Respiratory Denies: shortness of breath Gastrointestinal Denies: nausea or vomiting Musculoskeletal Reports: extremity pain and extremity swelling; Denies: back pain or neck pain Integumentary/Breast Denies: rash Neurological Denies: numbness in extremities or weakness in extremities Hematologic/Lymphatic Denies: easy bruising or easy bleeding PFSH PFSH Medical History (Updated 08/05/24 @ 15:09 by HOWARD Grant) Seasonal allergies ?J30.2 - Other seasonal allergic rhinitis (ICD-10) Arthritis ?M19.90 - Unspecified osteoarthritis, unspecified site (ICD-10) Colonoscopy planned Tubular adenoma of colon ?D12.6 - Benign neoplasm of colon, unspecified (ICD-10) Positive colorectal cancer screening using Cologuard test ?R19.5 - Other fecal abnormalities (ICD-10) Colonic polyp ?K63.5 - Polyp of colon (ICD-10) Myasthenia gravis ?G70.00 - Myasthenia gravis without (acute) exacerbation (ICD-10) Morbid obesity ?E66.01 - Morbid (severe) obesity due to excess calories (ICD-10) History of nephrolithiasis ?Z87.442 - Personal history of urinary calculi (ICD-10) Essential hypertension ?I10 - Essential (primary) hypertension (ICD-10) Cervical disc disease ?M50.90 - Cervical disc disorder, unspecified, unspecified cervical region (ICD-10) BMI 35.0-35.9,adult ?Z68.35 - Body mass index [BMI] 35.0-35.9, adult (ICD-10) Berylliosis ?J63.2 - Berylliosis (ICD-10) Surgical History (Updated 06/08/23 @ 14:50 by Chelita Bowles) History of ureteroscopy ?Z98.890 - Other specified postprocedural states (ICD-10) History of repair of rotator cuff ?Z98.890 - Other specified postprocedural states (ICD-10) Status post trigger finger release ?Z98.890 - Other specified postprocedural states (ICD-10) Hx of LASIK ?Z98.890 - Other specified postprocedural states (ICD-10) History of cystoscopy ?Z98.890 - Other specified postprocedural states (ICD-10) Hx of cardiac cath ?Z98.890 - Other specified postprocedural states (ICD-10) History of appendectomy ?Z90.49 - Acquired absence of other specified parts of digestive tract (ICD- 10) History of lithotripsy ?Z98.890 - Other specified postprocedural states (ICD-10) Family History (Updated 06/21/24 @ 08:26 by Cassi Vo) Mother Family history of COPD (chronic obstructive pulmonary disease) Primary malignant neoplasm of skin Father Heart disease Brother Heart disease Primary malignant neoplasm of skin Other Family history of coronary artery disease Social History Within the past year, how often did you have a drink containing alcohol: monthly or less Smoking status: Former smoker Second hand tobacco smoke exposure: No Non-prescribed substance use: denies use Previous occupational history: RETIRED Known occupational exposures/hazards: Yes Known occupational exposures/hazards details: BERYLLIUM DISEASE Highest level of school completed/degree received: some college, no degree Little interest or pleasure in doing things: not at all Feeling down, depressed, or hopeless: not at all Do you think of yourself as: straight/heterosexual Gender Identity: male Exam Narrative Exam Narrative: Gen.: Awake, alert, in no distress Head: Normocephalic, atraumatic ENT: Moist mucous membranes Respiratory: No respiratory distress Extremities: Moves extremities equally, normal flexion and extension of the toes of the right foot with no bony tenderness of the right fifth metatarsal. Right lateral malleolus with mild edema, ecchymosis and tenderness. No bony tenderness of the right anterior tibia or right knee. No obvious deformity Psych: Normal mood and affect Neuro: No focal neuro deficit Skin: Warm, dry, intact MDM - Extremity Injury (Lower) MDM Narrative Medical decision making narrative: X-rays reviewed by the radiologist, no evidence of fracture or dislocation. Patient placed in an Rufino wrap, Aircast. He remains neurovascularly intact. Rest, ice, elevate. Crutches given for comfort. Short course of analgesics given for home with NSAIDs. He has an appointment next week with an orthopedic doctor for follow-up. Return to the ER if symptoms change or worsen SUPERVISED APC VISIT, PHYSICIAN ATTESTATION: Based on the medical record the care appears appropriate. ? Medical Records Attestation: I reviewed the patient's medical records. Imaging Data XR ankle: Attestation: I have reviewed the pertinent imaging results. Radiologist's impression: ITS Impressions Ankle X-Ray 08/05/24 14:03 IMPRESSION: 1. Marked periarticular soft tissue swelling, most apparent anteriorly and laterally noted. The osseous alignment is otherwise satisfactory. 2. Small calcaneal enthesophytes at the insertion sites of Achilles tendon and plantar aponeurosis again noted. 3. No acute fracture or dislocation. Electronically authenticated by: IRENA VAZ Date: 08/05/2024 15:02 Discharge Plan Discharge Chief Complaint: Extremity Injury, Lower Clinical Impression: Acute ankle pain, Contusion of right ankle Patient Disposition: Home, Self-Care Time of Disposition Decision: 15:09 Condition: Good Prescriptions / Home Meds: New hydrocodone-acetaminophen 5-325 mg tablet 1 tab PO Q6H PRN (Reason: pain) 3 Days Qty: 12 0RF Rx Instructions: DX: M25.571 naproxen sodium 550 mg tablet 550 mg PO BID PRN (Reason: pain) Qty: 6 0RF No Action prednisone 10 mg tablet 5 mg PO DAILY rosuvastatin 20 mg tablet 20 mg PO DAILY budesonide 0.25 mg/2 mL suspension for nebulization 0.25 mg inhalation DAILY spironolactone 50 mg tablet 50 mg PO DAILY baby asprin carvedilol 3.125 mg tablet 3.125 mg PO BID Rx Instructions: must administer with a meal/food montelukast [Singulair] 10 mg tablet 10 mg PO QPM dapagliflozin propanediol [Farxiga] 10 mg tablet 10 mg PO DAILY Print Language: Mozambican Instructions: Contusion in Adults (ED) Referrals: MIGUEL ANGEL GREGORIO DO [Primary Care Provider] - 1 week Discharge Date/Time: 08/05/24 16:01
[2024-08-05] MEDS: HYDROCODONE/ACET 5-325 MG TABLET 1 TAB PO (14:08)
== END 2024-08-05 16:01 | disposition home or self-care (01) ==
PROVIDERS: Emergency Provider Emergency Medicine; PCP Internal Medicine
DX: S90.01XA Contusion of right ankle, initial encounter (principal); Z79.82 Long term (current) use of aspirin; Z90.49 Acquired absence of other specified parts of digestive tract; Z87.891 Personal history of nicotine dependence; W22.03XA Walked into furniture, initial encounter; M25.571 Pain in right ankle and joints of right foot
CPT/HCPCS: 73610; 99284

== ENCOUNTER 2025-01-25 11:26 | Outpatient (OUT) | payer MEDICARE, SELFPAY ==
--- NOTE | 2025-01-25 12:00 | NM_ITS ---
Patient Name: BEBO CALDERON MR#: [id number] : 1955 Exam Date: 01/25/2025 Ordering Doctor: DR MIGUEL ANGEL GREGORIO D.O. RADIOLOGY REPORT PROCEDURE: NM COLLIN PERF SPECT REST STR COMPARISON: None. INDICATIONS: CHEST PAIN, SHORTNESS OF BREATH, DIAPHORESIS TECHNIQUE: Exam Description: Stress/Rest two day protocol gated SPECT Rest Imagin.2 mCi Tc-99m Cardiolite IV on 01/26/2025 Stress Imaging 25.6 mCi Tc-99m Cardiolite IV on 01/25/2025 Exercise Protocol: 0.4 mg Lexiscan given IV Heart Rate (bpm): Rest: 86 Max: 100 PMHR: 65 Blood Pressure: Rest: 158/96 Max: 158/96 Symptoms: Rest and peak stress ECG findings were pending, and the exercise portion of the study was pending per attending physician [facility] . For more details, please see separate cardiac stress test report. FINDINGS: QUALITY OF STUDY: Good PERFUSION DEFECT: LOCATION: N/A SIZE: N/A SEVERITY: N/A TYPE: N/A WALL MOTION: Normal wall motion LV SIZE: 59 mL. TID / TCD: 0.7 LVEF: Calculated EF 81%. SUMMARY: Myocardial perfusion imaging study is normal CONCLUSION: 1. Myocardial perfusion is normal 2. Global left ventricular systolic function is hyperdynamic; EF is 81% 3. No evidence of significant transient ischemic dilatation Dictated by: Caroline Adhikari M.D. on 01/26/2025 at 11:17 Approved by: Caroline Adhikari M.D. on 01/26/2025 at 11:20
--- NOTE | 2025-01-25 12:19 | PC.NURSE ---
Nursing Note Cardiac Stress Test Reviewed: Medication, allergies and patient history reviewed. Stress Test: [x ] Patient tolerated stress test well. [ ] Patient unable to tolerate walking on treadmill. Switched to Lexiscan stress test. [ ] No chest pain noted per patient [x ] Chest pain that resolved prior to leaving stress lab. [x ] No dyspnea noted. [ ] Dyspnea that resolved prior to leaving stress lab. [ x] Patient left stress lab asymptomatic and hemodynamically stable. [ ] Patient taken to the Emergency Room due to non-resolving symptoms following stress test. [ ] Patient achieved target heart rate. [ ] Patient unable to achieve target heart rate. [ ] Aminophylline administered as reversal agent to Lexiscan (Regadenoson). [ ] Nitro administered. Nursing Comments:Pt had Lexiscan test. Pt had 2\10 chest pain that resolved within 2 minutes. Pt had no symptoms prior to leaving lab.
[2025-01-25] MEDS: REGADENOSON 0.4 MG/5 ML SYRINGE IV (12:23)
--- NOTE | 2025-01-25 17:20 | PM.STRESS ---
Stress Test Stress Test Allergies Allergy/AdvReac Type Severity Reaction Status Date / Time No Known Drug Allergies Allergy Verified 08/05/24 13:59 Requesting physician: MIGUEL ANGEL GREGORIO Procedure: Lexiscan stress test General Information: Reason for Stress Test: [Chest pain, SOB] Cardiac History and Risk Factors: [HTN] Resting 12 - Lead Electrocardiogram: Normal sinus rhythm Normal EKG Stress Test: Protocol: [Lexiscan] Exercise Capacity: [N/A] Blood Pressure Response: [N/A] Rhythm:[Sinus] ST - Response: [No significant ST T wave changes] Patient Response: [Chest pain, resolved after 2 minutes] Interpretation: 1. No ischemic EKG changes on Lexiscan pharmacological stress test 2. Nuclear images are to be read, interpreted and reported seperately
== END 2025-01-25 11:27 | disposition home or self-care (01) ==
LOC: CARD 11:27
PROVIDERS: PCP Internal Medicine; Visit Provider Internal Medicine
DX: R06.02 Shortness of breath (principal); R53.83 Other fatigue; R61 Generalized hyperhidrosis; R07.89 Other chest pain
CPT/HCPCS: 78452; 93017; A9500; J2785

== ENCOUNTER 2025-01-26 07:39 | Outpatient (OUT) | payer MEDICARE, SELFPAY | END 2025-01-26 07:40 | disposition home or self-care (01) | LOC: NM 07:40 | PROVIDERS: PCP Internal Medicine; Visit Provider Internal Medicine | DX: R06.02 Shortness of breath (principal); R53.83 Other fatigue; R61 Generalized hyperhidrosis ==